=== PATIENT | female | born 1955 | race Caucasian/White ===

== ENCOUNTER 2021-01-17 15:31 | Emergency (ER) | payer OTHER ==
[2021-01-18 14:09] LABS: SARS-CoV-2 NAA Not Detected (Not Detected)
== END 2021-01-17 16:19 | disposition home or self-care (01) ==
LOC: JVIRT 15:31
DX: Z11.52 Encounter for screening for COVID-19 (principal)
CPT/HCPCS: C9803; Q3014-GT; U0003; U0005